=== PATIENT | female | born 1975 | race Caucasian/White ===

== ENCOUNTER 2016-06-17 23:12 | Emergency (ER) | payer BC ==
--- NOTE | 2016-06-18 08:13 | ER ---
ADMIT: 06/17/2016 RM/LOC: ER [facility] MR#: [id number] [address] [facility] [id number] SARAH KERNS [address] [place] [address] Emergency Room Report SEX: F AGE: 40 : 1975 DATE: 06/17/2016 The patient is a 40-year-old female, turned over to me by Dr. Farias for UTI, concern for ureteral obstruction due to chronic UTI, currently on 3rd antibiotic. The patient has vague right flank pain for the past month. No prior history of renal colic or family history of renal colic. Does admit to drinking quite a bit of pop. Exam remarkable for nontoxic, afebrile, comfortable-appearing female. Urine consistent with UTI with 256 wbc's. Calcium oxalate crystals noted. CT shows nonobstructive renal stones. My read is, there is a small distal right ureteral stone with minimal hydro, will have radiologist look at it in the morning. Advised no more pop, push fluids, strain urine, Flomax 0.4 mg in department and daily for urinary symptoms. Follow up with Lavern Lincoln APRN p.r.n. next week. Jimy Macedo MD/ suri JOB #: [id number] CC: Jimy Macedo MD, Attending Physician Lavern Lincoln APRN, Family Physician Jimy Macedo MD
--- NOTE | 2016-07-08 21:26 | ER ---
ADMIT: 06/17/2016 RM/LOC: ER [facility] MR#: [id number] [address] [facility] [address] [place] [id number] KERNSSARAH LOGAN [address] [place] [address] Emergency Room Report SEX: F AGE: 40 : 1975 DATE: 06/17/2016 HISTORY OF PRESENT ILLNESS: A 40-year-old female who comes to the Emergency Department with complaints of burning and frequent urination. It has been occurring for the past several days. She has been to the Urgent Care x2. She initially had a UA drawn there which showed a UTI. She was given Bactrim, continued to have symptoms. Returned to the Urgent Care and they gave her Cipro. She continued to have symptoms. She returned to the Urgent Care where another urinalysis was done with cultures. They subsequently called her at home and changed her antibiotic to cefuroxime. She has been on that since , comes to the Emergency Department tonight with continued frequency and burning with urination. She has chronic back pain. Does not think her pain in her back has been any different than her usual pain. PHYSICAL EXAMINATION: GENERAL: Reveals a 40-year-old female, in no acute distress. LUNGS: Clear. CARDIOVASCULAR: No murmur. Regular rate and rhythm. ABDOMEN: Soft. EXTREMITIES: Unremarkable. LABORATORY DATA: UA was done, which revealed negative , which showed 256 wbc's, 60 rbc's, few calcium oxalate crystals. DISPOSITION: At the time of this dictation, CT renal run has been ordered. I will be signing this patient to Dr. Bernabe. Follow up with CT renal run and further workup deemed necessary. Rogerio Farias MD/ suri JOB #: [id number] CC: Jimy Macedo MD, Attending Physician Lavern Lincoln APRN, Family Physician
== END 2016-06-18 03:00 | disposition home or self-care (01) ==
LOC: ER 23:12
DX: N39.0 Urinary tract infection, site not specified (principal); N20.0 Calculus of kidney